=== PATIENT | female | born 1985 | race Caucasian/White ===

== ENCOUNTER 2021-10-22 09:48 | Emergency (ER) | payer SELFPAY | END 2021-10-22 11:45 | disposition home or self-care (01) | LOC: ERS 09:48 | DX: J06.9 Acute upper respiratory infection, unspecified (principal); D64.9 Anemia, unspecified; F17.210 Nicotine dependence, cigarettes, uncomplicated | CPT/HCPCS: 99283 ==

== ENCOUNTER 2021-10-23 09:34 | Emergency (ER) | payer SELFPAY ==
[2021-10-23] MEDS ORDERED: Acetaminophen 500 MG TAB ONE ×2 (10:40→10:42)
[2021-10-23] MEDS ORDERED: Ondansetron ODT 4 MG TAB ONE (10:49)
== END 2021-10-23 10:58 | disposition home or self-care (01) ==
LOC: ERS 09:34
DX: J10.1 Influenza due to other identified influenza virus with other respiratory manifestations (principal); F17.210 Nicotine dependence, cigarettes, uncomplicated
CPT/HCPCS: 87804; 99283; Q0162